=== PATIENT | female | born 1975 | race Caucasian/White ===

== ENCOUNTER → 2018-10-17 | Outpatient (CLI) | payer BC ==
[~2018-10-17] MED LIST: PRENATAL VITAMI1 TA5 PO
== END ==
LOC: MC.RAD 09:40
DX: Z12.31 Encounter for screening mammogram for malignant neoplasm of breast (principal)

== ENCOUNTER → 2022-02-02 | Outpatient (CLI) | payer BC ==
[~2022-02-02] MED LIST changes: +ALLEGRA 180MG180 MG PO; +BUTALBITAL ACET1 CAP PO; +FLONASE NASAL S16 GM NS; +LAMICTAL 25MG T25 MG PO; +PRENATAL FORMU1 EAC3 PO; +PROTONIX 40MG T40 MG PO; +ZOLOFT 100MG100 MG PO
== END ==
LOC: MC.RAD 14:05
DX: Z12.31 Encounter for screening mammogram for malignant neoplasm of breast (principal)

== ENCOUNTER → 2023-02-25 | Outpatient (CLI) | payer BC | LOC: MC.RAD 15:22 | DX: Z12.31 Encounter for screening mammogram for malignant neoplasm of breast (principal) ==

== ENCOUNTER → 2024-03-23 | Outpatient (CLI) | payer BC | LOC: MC.RAD 08:59 | DX: Z12.31 Encounter for screening mammogram for malignant neoplasm of breast (principal) ==